=== PATIENT | female | born 1995 | race Two or more races ===

== ENCOUNTER 2019-11-21 08:46 | Emergency (ER) | payer OTHER ==
[2019-11-21] MEDS ORDERED: NORMAL SALINE 1000 ML 1,000 ML IV ONE (10:32)
[2019-11-21] MEDS ORDERED: ONDANSETRON HCL INJ/PF 4 MG/2 ML SDV IV ONE (10:33)
[2019-11-21] MEDS ORDERED: MORPHINE SULFATE 10 MG/ML INJ IV ONE (10:33)
[2019-11-21 10:39] LABS: APPEARANCE,URINE CLOUDY; BILIRUBIN,URINE NEGATIVE (NEGATIVE); COLOR,URINE AMBER; GLUCOSE, URINE NEGATIVE (NEGATIVE); KETONES,URINE NEGATIVE (NEGATIVE); LEUKOCYTE ESTERASE,URINE SMALL (NEGATIVE); NITRITE,URINE NEGATIVE (NEGATIVE); PROTEIN,URINE 100 mg/dL (NEGATIVE)
--- NOTE | 2019-11-21 11:32 | RADIOLOGY REPORT (SQ) ---
EXAM DESCRIPTION: U/S ABDOMEN COMPLETE W/DOPPLER IMAGES COMPLETED DATE/TIME: 11/21/2019 11:20 am REASON FOR STUDY: ruq abd pain/galllstones COMPARISON: None. TECHNIQUE: Dynamic and static grayscale images acquired of the abdomen and recorded on PACS. Additio nal selected color Doppler and spectral images recorded. Note: Study does not meet criteria for complete doppler/duplex scan LIMITATIONS: Midline bowel gas FINDINGS: PANCREAS: Midline pancreas unremarkable LIVER: No masses. Echotexture normal. LIVER VASCULATURE: Normal directional flow of the main portal vein and hepatic veins. GALLBLADDER: Move shadowing stones at the gallbladder fundus. Diffuse gallbladder wall thickening wi th comet tail artifact from adenomyosis. No pericholecystic fluid ULTRASOUND-DETECTED MARC'S SIGN: Positive INTRAHEPATIC DUCTS AND COMMON DUCT: No intrahepatic biliary ductal dilatation. Common bile duct at t he elizabeth hepatis 6 mm. Distal most common duct stone could not be excluded. Distal most common duct obscured by duodenum gas INFERIOR VENA CAVA: Normal flow. AORTA: No aneurysm. RIGHT KIDNEY: Normal size. Normal echogenicity. No solid or suspicious masses. No hydronephros is. No calcifications. LEFT KIDNEY: Normal size. Normal echogenicity. No solid or suspicious masses. No hydronephrosi s. No calcifications. SPLEEN: Normal size. No solid masses. PERITONEAL AND PLEURAL SPACES: No ascites or effusions. OTHER: No other significant finding. IMPRESSION: Gallbladder wall thickening with positive sonographic Marc sign Tiny stones in the gallbladder fundus. Gallbladder wall adenomyosis. Distal common duct not well seen. Distal ductal stone could not be excluded TECHNICAL DOCUMENTATION: JOB ID: [id number] 2010 [employer]- All Rights Reserved Reading location - [facility]station name: [email or web address]
[2019-11-21 11:47] LABS: ABSOLUTE EOSINOPHILS # (AUTO) 0.1 10^3/uL (0.0-0.6); ABSOLUTE LYMPHOCYTES (AUTO) 1.2 10^3/uL (0.5-4.7); ABSOLUTE NEUT (AUTO) 11.8 10^3/uL (1.7-8.2); BASOPHILS % (AUTO) 0.3 % (0-2); EOSINOPHILS % (AUTO) 0.6 % (0-6); HEMATOCRIT 37.3 % (36.0-47.0); HEMOGLOBIN 12.7 g/dL (12.0-15.5); LYMPHOCYTES % (AUTO) 8.7 % (13-45); MEAN CORPUSCULAR HEMOGLOBIN 28.1 pg (27.0-33.4); MEAN CORPUSCULAR VOLUME 83 fl (80-97); MONOCYTES % (AUTO) 6.8 % (3-13); PLATELET COUNT 227 10^3/uL (150-450); RED BLOOD COUNT 4.51 10^6/uL (3.72-5.28); RED CELL DISTRIBUTION WIDTH 14.5 % (11.5-14.0); SEGMENTED NEUTROPHILS % (AUTO) 83.6 % (42-78); TOTAL CELLS COUNTED % (AUTO) 100 %; WHITE BLOOD COUNT 14.1 10^3/uL (4.0-10.5)
[2019-11-21 12:14] LABS: ALBUMIN 4.5 g/dL (3.5-5.0); ALKALINE PHOSPHATASE 195 U/L (38-126); ANION GAP 10 (5-19); ASPARTATE AMINO TRANSFERASE 334 U/L (14-36); BILIRUBIN,DIRECT 0.5 mg/dL (0.0-0.4); BILIRUBIN,TOTAL 1.3 mg/dL (0.2-1.3); BLOOD UREA NITROGEN 9 mg/dL (7-20); CALCIUM 9.2 mg/dL (8.4-10.2); CARBON DIOXIDE 27 mmol/L (22-30); CHLORIDE 102 mmol/L (98-107); GLUCOSE 107 mg/dL (75-110); POTASSIUM 3.4 mmol/L (3.6-5.0); TOTAL PROTEIN 7.5 g/dL (6.3-8.2)
[2019-11-21] MEDS ORDERED: CEFTRIAXONE 1 GM/D5W RTU 1 GM/50 ML RTUPB IV ONE (12:18)
--- NOTE | 2019-11-21 17:50 | RADIOLOGY REPORT (SQ) ---
EXAM DESCRIPTION: MRI ABDOMEN WITHOUT IMAGES COMPLETED DATE/TIME: 11/21/2019 5:33 pm REASON FOR STUDY: mr-ercp/gallstones/elevated LFTs/RUQ abd pain COMPARISON: Right upper quadrant ultrasound 11/21/2019 TECHNIQUE: Noncontrast MRCP. Source and MIP images reviewed. LIMITATIONS: None. FINDINGS: GALLBLADDER: There are multiple tiny, round filling defects, consistent with small gallsto kari. Gallbladder wall is concentrically thickened with no surrounding inflammatory change. INTRAHEPATIC DUCTS: Nondilated. EXTRAHEPATIC DUCTS: Common duct is normal caliber. No dilatation of the pancreatic duct. There is a small round filling defect in the distal common bile duct, consistent with choledocholithiasis. PANCREAS: Generally homogeneous, no gross mass or significant signal alteration. No surrounding infl ammatory changes or fluid. Pancreatic duct is normal. LIVER, SPLEEN, KIDNEYS, ADRENALS: No significant abnormality. VESSELS: No evidence of aneurysm. Grossly appropriate flow voids in the major vascular structures. LUNG BASES: Grossly clear. OTHER: No other significant finding. IMPRESSION: 1. Choledocholithiasis without evidence of biliary ductal dilatation. 2. Cholelithiasis without evidence of cholecystitis 3. Concentric wall thickening of the gallbladder, consistent with prior diagnosis of adenomyomatosis TECHNICAL DOCUMENTATION: JOB ID: [id number] 2010 [employer]- All Rights Reserved Reading location - IP/workstation name: [email or web address]
[2019-11-21] MEDS ORDERED: LEVOFLOXACIN 500 MG TABLET PO ONE (19:01)
[2019-11-21 19:18] VITALS: BP 117/64
--- NOTE | 2019-11-23 10:44 | ER Document Report ---
Entered by SOMMER SOMMER SCRIBE 11/21/19 1038 Acting as scribe for:JOSE CLARK MD ED GI/ - General Information source: Patient - Related Data Home Medications: Zoloft <JOSE CLARK - Last Filed: 11/21/19 16:26> <DENNY CESAR JR - Last Filed: 11/21/19 19:03> - General Chief Complaint: Abdominal Pain Stated Complaint: ABDOMINAL PAIN Time Seen by Provider: 11/21/19 09:46 Notes: This 24 year old female patient presents to the emergency department today with complaints of abdominal pain. Patient states she was visiting family in [place] and woke up at night x2 days ago due to abdominal pain. Patient states she saw a Physician in [place] and they found she had gallstones after a CT scan. Patient states her abdominal pain is currently a 2/5, and has been taking hydrocodone for pain that was prescribed to her in [place]. Patient states she last vomited x24 hours ago and has eaten earlier this morning between 4-5 am. Patient states she has a x6 week old son. (JOSE CLARK) - Related Data Allergies/Adverse Reactions: No Known Allergies Allergy (Verified 11/21/19 11:11) Past Medical History - General Information source: Patient - Social History Smoking Status: Never Smoker Cigarette use (# per day): No Frequency of alcohol use: Occasional Family History: Reviewed & Not Pertinent GI Medical History: Reports: Other - Gallstones Psychiatric Medical History: Reports: Hx Depression Past Surgical History: Reports: Hx Oral Surgery - wisdom teeth <JOSE CLARK - Last Filed: 11/21/19 16:26> Review of Systems - Review of Systems Constitutional: No symptoms reported EENT: No symptoms reported Cardiovascular: No symptoms reported Respiratory: No symptoms reported Gastrointestinal: See HPI, Abdominal pain, Vomiting, Other - Gallstones Genitourinary: No symptoms reported Female Genitourinary: No symptoms reported Musculoskeletal: No symptoms reported Skin: No symptoms reported Hematologic/Lymphatic: No symptoms reported Neurological/Psychological: No symptoms reported -: Yes All other systems reviewed and negative <JOSE CLARK - Last Filed: 11/21/19 16:26> Physical Exam - General General appearance: Appears well, Alert - HEENT Head: Normocephalic, Atraumatic Eyes: Normal Pupils: PERRL - Respiratory Respiratory status: No respiratory distress Chest status: Nontender Breath sounds: Normal Chest palpation: Normal - Cardiovascular Rhythm: Regular Heart sounds: Normal auscultation Murmur: No - Abdominal Inspection: Normal Distension: No distension Bowel sounds: Normal Tenderness: Tender - RUQ, Guarding - Extremities General upper extremity: Normal inspection. No: Edema General lower extremity: Normal inspection. No: Edema - Neurological Neuro grossly intact: Yes Cognition: Normal Orientation: AAOx4 Speech: Normal - Psychological Associated symptoms: Normal affect, Normal mood - Skin Skin Temperature: Warm Skin Moisture: Dry Skin Color: Normal <JOSE CLARK - Last Filed: 11/21/19 16:26> - Vital signs Vitals: Temp Pulse Resp BP Pulse Ox 98.0 F 59 L 18 113/63 98 11/21/19 08:50 11/21/19 08:50 11/21/19 08:50 11/21/19 08:50 11/21/19 08:50 Course - Laboratory Result Diagrams: 11/21/19 11:23 11/21/19 11:23 - Diagnostic Test Radiology reviewed: Image reviewed, Reports reviewed <JOSE CLARK - Last Filed: 11/21/19 16:26> - Laboratory Result Diagrams: 11/21/19 11:23 11/21/19 11:23 <DENNY CESAR JR - Last Filed: 11/21/19 19:03> - Re-evaluation Re-evalutation: 11/21/19 15:22 Patient resting comfortably not having signs of pain at this time. However patient does have abnormal laboratories including liver function test. Patient has known gallbladder disease with gallstones, presented recently diagnosed at the [facility] in [place]-1 11/19/2019. Patient was diagnosed then with gallstones acute abdominal pain diarrhea nausea and vomiting. 11/21/19 15:28 Discussed with patient the need to know whether or not she has an common bile duct obstruction with a gallstone and if so she may need to be transferred to another facility inasmuch as we do not have any bullet charging machine operator senior contract specialist today. Also he may be in need of a bullet charging machine operator who performs ERCP in order to remove a common bile duct stone. Patient is aware of this possibility and is aware of the pending MRI ERCP study of her abdomen to prove or disprove whether or not there is common bile duct stones blockages with stones. 11/21/19 16:[address] cesar who will follow patient regarding results of MR ERCP and determination of appropriate facility for patient to be admitted to hospital for procedure/surgery/on medical management. (JOSE CLARK) - Vital Signs Vital signs: Temp Pulse Resp BP Pulse Ox 98.8 F 57 L 16 99/67 L 99 11/21/19 18:22 11/21/19 18:22 11/21/19 18:22 11/21/19 18:22 11/21/19 18:22 - Laboratory Laboratory results interpreted by me: 11/21/19 11/21/19 11/21/19 09:26 11:23 11:23 WBC 14.1 H RDW 14.5 H Lymph % (Auto) 8.7 L Absolute Neuts (auto) 11.8 H Seg Neutrophils % 83.6 H Potassium 3.4 L Direct Bilirubin 0.5 H AST 334 H ALT 141 H Alkaline Phosphatase 195 H Urine Protein 100 H Urine Blood LARGE H Urine Urobilinogen 4.0 H Ur Leukocyte Esterase SMALL H Patient has marked elevation in liver function tests and a white blood cell count of 14,000. Patient has a normal direct bilirubin (JOSE CLARK) - Diagnostic Test Radiology results interpreted by me: 11/21/19 15:26 Ultrasound gallbladder discloses a gallbladder wall thickening with tiny stones present in the gallbladder. The distal common bile duct could not be well visualized so therefore a distal stone could not be excluded. There is no pericholecystic fluid present. (JOSE CLARK) 11/21/19 18:54 MRI reveals gallbladder with stones and gallbladder wall thickening but no cholecystitis (DENNY CESAR JR) Critical Care Note - Critical Care Note Total time excluding time spent on procedures (mins): 60 <DENNY CESAR JR - Last Filed: 11/21/19 19:03> - Critical Care Note Comments: I discussed findings with patient and advised patient to follow-up with surgeon of choice. (DENNY CESAR JR) Discharge <JOSE CLARK - Last Filed: 11/21/19 16:26> <DENNY CESAR JR - Last Filed: 11/21/19 19:03> - Discharge Clinical Impression: Cholelithiasis Qualifiers: Cholelithiasis location: gallbladder Cholecystitis presence: without cholecystitis Biliary obstruction: without biliary obstruction Qualified Code(s): K80.20 - Calculus of gallbladder without cholecystitis without obstruction UTI (urinary tract infection) Qualifiers: Urinary tract infection type: acute cystitis Hematuria presence: without hematuria Qualified Code(s): N30.00 - Acute cystitis without hematuria Clinical Impression: (Ruled Out): Acute cholecystitis due to biliary calculus Condition: Fair Disposition: HOME, SELF-CARE Instructions: Gallbladder Disease ([facility]) Additional Instructions: Follow-up with surgeon of choice Dr. Chaudhry is senior contract specialist today. Return to ER as needed take medicines as directed Prescriptions: Ursodiol [Actigall 300 mg Capsule] 1 cap PO DAILY #10 cap Dicyclomine HCl [Bentyl 20 mg Tablet] 20 mg PO QID PRN #40 tablet PRN Reason: Pain Scale Of 1 Ciprofloxacin HCl [Cipro 500 mg Tablet] 500 mg PO BID #20 tablet I personally performed the services described in the documentation, reviewed and edited the documentation which was dictated to the scribe in my presence, and it accurately records my words and actions.
== END 2019-11-21 19:17 | disposition home or self-care (01) ==
LOC: ER 08:46
DX: K80.20 Calculus of gallbladder without cholecystitis without obstruction (principal); N30.00 Acute cystitis without hematuria; R10.9 Unspecified abdominal pain; R11.10 Vomiting, unspecified
CPT/HCPCS: 99291; 96361; 96375; 96365; 36415; 87040; 83690; 85025; 81025; 80053; 81001; 74181; 76700; 93976; J2270; J2405; J7030; J0696